=== PATIENT | male | born 1990 | race Caucasian/White ===

== ENCOUNTER 2020-08-20 10:52 | Emergency (ER) | payer MEDICAID ==
[~2020-08-20] VITALS: Ht 180.3 cm; Wt 106.6 kg
[2020-08-20 11:14] VITALS: BP 148/78
== END 2020-08-20 11:15 | disposition home or self-care (01) ==
LOC: ER 10:52
DX: J02.9 Acute pharyngitis, unspecified (principal)
CPT/HCPCS: A4663